=== PATIENT | female | born 1980 | race Caucasian/White ===

== ENCOUNTER 2017-04-24 23:11 | Emergency (ER) | payer OTHER ==
[2017-04-25] MEDS ORDERED: DIPHENHYDRAMINE HCL 50 MG/ML VIAL IM ONE (00:44)
[2017-04-25] MEDS ORDERED: KETOROLAC TROMETHAMINE 60 MG/2 ML SDV IM ONE (00:44)
[2017-04-25] MEDS ORDERED: PROMETHAZINE HCL INJ 50 MG/1 ML VIAL IM ONE (00:45)
--- NOTE | 2017-04-25 00:52 | ER Document Report ---
ED Headache - General Chief Complaint: Headache Stated Complaint: HEADACHE Time Seen by Provider: 04/25/17 00:35 Mode of Arrival: Ambulatory Information source: Patient Notes: 37-year-old female with a history of migraine headaches presents with complaint of headache. Patient states headache started 3 hours prior to arrival. It initially started on her left side but now has migrated to her right side. She describes the pain as constant, throbbing with associated photophobia nausea and vomiting. Patient did take her home migraine medication of Imitrex but immediately vomited. She denies any head injury, changes in vision, slurred speech, recent illnesses. Patient states this is typical of her usual migraine headache that she has 3-4 times a month. TRAVEL OUTSIDE OF THE [place] IN LAST 30 DAYS: No - HPI Patient complains to provider of: "Migraine" Patient reports: Frequent migraines, Hx chronic headaches Onset: This evening Onset was: Gradual. denies: Thunderclap Timing: Still present Quality of pain: Stabbing, Throbbing Severity: Moderate Pain Level: 2 Context: denies: CO exposure, Head injury, Meningitis exposure Preceding symptoms: denies: Visual disturbance Associated symptoms: Chills, Lightheaded, Nausea/vomiting, Photophobia. denies : Confusion, Dizzy, Fever, Neck pain, Speech problems, Stiff neck, Tingling/ numb sensation, Trouble walking Exacerbated by: Light, Noise, Movement Similar symptoms previously: Yes - Related Data Allergies/Adverse Reactions: No Known Allergies Allergy (Verified 11/09/15 16:41) Past Medical History - General Information source: Patient - Social History Smoking Status: Never Smoker Frequency of alcohol use: None Drug Abuse: None Lives with: Family, Spouse/Significant other Family History: Reviewed & Not Pertinent, Other - FATHER AND BROTHER WITH KIDNEY STONES Patient has suicidal ideation: No Patient has homicidal ideation: No Neurological Medical History: Reports: Hx Migraine Renal/ Medical History: Reports: Hx Kidney Stones GI Medical History: Reports: Hx Irritable Bowel Psychiatric Medical History: Reports: Hx Anxiety, Hx Bipolar Disorder - "mood swings", Hx Depression, Hx Post Traumatic Stress Disorder Past Surgical History: Reports: Hx Tonsillectomy - Immunizations Immunizations up to date: Yes Hx Diphtheria, Pertussis, Tetanus Vaccination: Yes Review of Systems - Review of Systems Constitutional: See HPI. denies: Fever, Weakness EENT: denies: Eye pain, Blurred vision, Double vision, Vertigo Cardiovascular: denies: Chest pain Respiratory: No symptoms reported Gastrointestinal: Nausea, Vomiting Musculoskeletal: No symptoms reported Physical Exam - Vital signs Vitals: Temp Pulse Resp BP Pulse Ox 97.9 F 74 18 135/90 H 99 04/24/17 23:41 04/24/17 23:41 04/24/17 23:41 04/24/17 23:41 04/24/17 23:41 Interpretation: Normal. No: Hypertensive, Febrile - General General appearance: Appears well, Alert In distress: None - HEENT Head: Normocephalic, Atraumatic Eyes: Normal. No: Pale conjunctiva, Periorbital edema Conjunctiva: Normal Cornea: Normal Extraocular movements intact: Yes Pupils: PERRL Fundascopic: Normal Mucous membranes: Normal - Neurological Neuro grossly intact: Yes Cognition: Normal Orientation: AAOx4 Dasia Coma Scale Eye Opening: Spontaneous Dasia Coma Scale Verbal: Oriented Dasia Coma Scale Motor: Obeys Commands Dasia Coma Scale Total: 15 Speech: Normal Cranial nerves: Normal. No: Facial palsy, Sensory deficit Cerebellar coordination: Normal Motor strength normal: LUE, RUE, LLE, RLE Sensory: Normal Course - Re-evaluation Re-evalutation: 04/25/17 00:51 There is 37-year-old female with a history of migraine headaches presents with complaint of headache. Patient states headache started 3 hours prior to arrival. She attempted to take her home medication of Imitrex but immediately vomited.Upon arrival vitals were reviewed and within normal limits. Patient does not appear toxic or dehydrated. She is in no acute distress. Patient has normal neurologic exam and funduscopic exam.Patient received Phenergan, Benadryl and Toradol during her ED course. 04/25/17 01:59 Patient reevaluated and reports improvement of pain but not resolution. I will try prednisone. - Vital Signs Vital signs: Temp Pulse Resp BP Pulse Ox 97.9 F 74 18 135/90 H 99 04/24/17 23:41 04/24/17 23:41 04/24/17 23:41 04/24/17 23:41 04/24/17 23:41 Discharge - Discharge Clinical Impression: Migraine Condition: Good Disposition: HOME, SELF-CARE Instructions: Migraine Headache ([facility]), Toradol Injection ([facility]), Headache ([facility]) , Use of Diphenhydramine, Antinausea Medication ([facility])
[2017-04-25] MEDS ORDERED: PROMETHAZINE HCL INJ 25 MG/1 ML VIAL ONE (00:54)
[2017-04-25] MEDS ORDERED: PREDNISONE 20 MG TABLET PO ONE (01:58)
[2017-04-25] MEDS ORDERED: LORAZEPAM 1 MG TABLET PO ONE (01:58)
[2017-04-25 02:22] VITALS: BP 117/75
== END 2017-04-25 02:22 | disposition home or self-care (01) ==
LOC: ER 23:11
DX: G43.909 Migraine, unspecified, not intractable, without status migrainosus (principal); R11.2 Nausea with vomiting, unspecified; H53.149 Visual discomfort, unspecified; R42 Dizziness and giddiness; R68.83 Chills (without fever)
CPT/HCPCS: 99283; 96372; J1200; J1885; J7512; J2550

== ENCOUNTER 2017-07-07 12:25 | Emergency (ER) | payer OTHER ==
[2017-07-07 12:30] VITALS: BP 120/72
--- NOTE | 2017-07-07 12:52 | ER Document Report ---
HPI - HPI Patient complains to provider of: left ear infection Onset: Yesterday Onset/Duration: Gradual Pain Level: 3 Context: 37 yo 8 week female took external aurical earring out because it became swollen and painful with some drainage. Associated Symptoms: None Exacerbated by: Movement Relieved by: Denies Similar symptoms previously: No Recently seen / treated by doctor: No - ROS ROS below otherwise negative: Yes Systems Reviewed and Negative: Yes All other systems reviewed and negative - CONSTITUTIONAL Constitutional: DENIES: Fever, Chills - EENT EENT: REPORTS: Ear Pain - left Past Medical History - General Information source: Patient - Social History Smoking Status: Current Every Day Smoker Chew tobacco use (# tins/day): No Frequency of alcohol use: None Drug Abuse: None Lives with: Spouse/Significant other Family History: Reviewed & Not Pertinent, Other - FATHER AND BROTHER WITH KIDNEY STONES Patient has suicidal ideation: No Patient has homicidal ideation: No Neurological Medical History: Reports: Hx Migraine Renal/ Medical History: Reports: Hx Kidney Stones. Denies: Hx Peritoneal Dialysis GI Medical History: Reports: Hx Irritable Bowel Psychiatric Medical History: Reports: Hx Anxiety, Hx Bipolar Disorder - "mood swings", Hx Depression, Hx Post Traumatic Stress Disorder Past Surgical History: Reports: Hx Orthopedic Surgery - ACL reconstruction and lumbar fusion, Hx Tonsillectomy - Immunizations Immunizations up to date: Yes Hx Diphtheria, Pertussis, Tetanus Vaccination: Yes Vertical Provider Document - CONSTITUTIONAL Agree With Documented VS: Yes Exam Limitations: No Limitations General Appearance: No Apparent Distress - INFECTION CONTROL TRAVEL OUTSIDE OF THE [place] IN LAST 30 DAYS: No - HEENT Notes: swelling and tender to left external ear, crusted hole where the earring was placed in helix crux.mastoid non tender. posterior auricular node. ear not jutted out, pinna non tender - NECK Neck: Supple. negative: Lymphadenopathy-Left, Lymphadenopathy-Right - NEURO Level of Consciousness: Awake Course - Re-evaluation Re-evalutation: 07/07/17 13:[address] Jones Aguero and since she is 8 weeks and 3 days for antibiotic choice. He recommends clindamycin. 07/07/17 13:11 - Vital Signs Vital signs: Temp Pulse Resp BP Pulse Ox 98.9 F 81 14 120/72 97 07/07/17 12:28 07/07/17 12:28 07/07/17 12:28 07/07/17 12:28 07/07/17 12:28 Discharge - Discharge Clinical Impression: External left ear infection Condition: Good Disposition: HOME, SELF-CARE Instructions: Acetaminophen, Clindamycin ([facility]), Otitis Externa ([facility]) Additional Instructions: Warm compress Recheck external left ear in 24 hours Return to the emergency room if worsening of the symptoms Prescriptions: Clindamycin HCl [Cleocin 150 mg Capsule] 300 mg PO TID #42 capsule
== END 2017-07-07 13:19 | disposition home or self-care (01) ==
LOC: ER 12:25
DX: O26.891 Other specified pregnancy related conditions, first trimester (principal); L08.9 Local infection of the skin and subcutaneous tissue, unspecified; Z3A.08 8 weeks gestation of pregnancy; F17.200 Nicotine dependence, unspecified, uncomplicated
CPT/HCPCS: 99282

== ENCOUNTER 2017-12-07 21:05 | Emergency (ER) | payer OTHER ==
[2017-12-07 21:19] VITALS: BP 133/71
[2017-12-07] MEDS ORDERED: ACETAMINOPHEN 325 MG TABLET PO ONE (21:47)
--- NOTE | 2017-12-07 22:03 | ER Document Report ---
HPI - HPI Pain Level: 3 Context: Patient is a 37-year-old female who presents to the emergency department after stubbing her toe on her ottoman around 1930 this evening. Describes the pain as a sore pain. Walking on the her left foot makes the pain worse. He has not taken any medications to help the pain. - REPRODUCTIVE Reproductive: DENIES: : Past Medical History - General Information source: Patient - Social History Smoking Status: Unknown if Ever Smoked Family History: Reviewed & Not Pertinent, Other - FATHER AND BROTHER WITH KIDNEY STONES Neurological Medical History: Reports: Hx Migraine Renal/ Medical History: Reports: Hx Kidney Stones. Denies: Hx Peritoneal Dialysis GI Medical History: Reports: Hx Irritable Bowel Psychiatric Medical History: Reports: Hx Anxiety, Hx Bipolar Disorder - "mood swings", Hx Depression, Hx Post Traumatic Stress Disorder Past Surgical History: Reports: Hx Orthopedic Surgery - ACL reconstruction and lumbar fusion, Hx Tonsillectomy - Immunizations Immunizations up to date: Yes Hx Diphtheria, Pertussis, Tetanus Vaccination: Yes Vertical Provider Document - INFECTION CONTROL TRAVEL OUTSIDE OF THE [place] IN LAST 30 DAYS: No - HEENT HEENT: Atraumatic - NECK Neck: Normal Inspection - CARDIOVASCULAR Cardiovascular: Regular Rate Pulses: Normal: Dorsalis pedis - NEURO Level of Consciousness: Awake, Alert, Appropriate - DERM Integumentary: Warm, Dry Course - Re-evaluation Re-evalutation: 12/07/17 23:02 X-rays have been reviewed and patient does not have an acute fracture at this time. She will be provided crutches, postop shoe, and nnamdi taping for her toe injury. Patient is stable for discharge. - Vital Signs Vital signs: Temp Pulse Resp BP Pulse Ox 98.7 F 95 20 133/71 H 96 12/07/17 21:18 12/07/17 21:18 12/07/17 21:18 12/07/17 21:18 12/07/17 21:18 Discharge - Discharge Clinical Impression: Toe injury Condition: Stable Disposition: HOME, SELF-CARE Additional Instructions: You have been seen in the emergency department for an injury to your left pinky toe. Your x-rays look normal. You do not have a fracture. You have been provided crutches, a post op shoe, and nnamdi taping. Rest her foot for the next 2-3 days. You may apply ice 20 minutes on, 20 minutes off the area. For pain control, you can take 1000 mg of Tylenol and 600 mg of Motrin every 6 hours as needed for the pain. If you feel your toe is getting worse, or have any concerns that are worrisome to you, please return to the emergency department.
--- NOTE | 2017-12-07 22:53 | RADIOLOGY REPORT (SQ) ---
Left toes two view on 12/07/2017 at 9:38 PM CLINICAL INDICATION: Stubbed fifth toe, pain and swelling COMPARISON: None FINDINGS: There is no radiopaque foreign body. There are no fractures. Visualized joints are well aligned. No bony abnormality is noted. IMPRESSION: No acute abnormality.
== END 2017-12-07 23:23 | disposition home or self-care (01) ==
LOC: ER 21:05
DX: S99.929A Unspecified injury of unspecified foot, initial encounter (principal); W22.03XA Walked into furniture, initial encounter
CPT/HCPCS: 99283

== ENCOUNTER 2018-01-06 10:45 | Inpatient (IN) | payer OTHER ==
[2018-02-12 22:00] LABS: APPEARANCE,URINE CLOUDY; BILIRUBIN,URINE NEGATIVE (NEGATIVE); COLOR,URINE YELLOW; GLUCOSE, URINE NEGATIVE (NEGATIVE); KETONES,URINE NEGATIVE (NEGATIVE); LEUKOCYTE ESTERASE,URINE SMALL (NEGATIVE); NITRITE,URINE NEGATIVE (NEGATIVE); PROTEIN,URINE NEGATIVE (NEGATIVE); URINE SPECIFIC GRAVITY 1.012; UROBILINOGEN,URINE NEGATIVE mg/dL (<2.0)
[2018-02-12 22:03] LABS: ABSOLUTE BASOPHILS # (AUTO) 0.1 10^3/uL (0.0-0.2); ABSOLUTE EOSINOPHILS # (AUTO) 0.3 10^3/uL (0.0-0.6); ABSOLUTE LYMPHOCYTES (AUTO) 2.2 10^3/uL (0.5-4.7); ABSOLUTE NEUT (AUTO) 9.3 10^3/uL (1.7-8.2); BASOPHILS % (AUTO) 0.4 % (0-2); EOSINOPHILS % (AUTO) 2.5 % (0-6); HEMATOCRIT 30.8 % (36.0-47.0); MEAN CORPUSCULAR HEMOGLOBIN 32.4 pg (27.0-33.4); MEAN CORPUSCULAR HGB CONC 35.8 g/dL (32.0-36.0); MEAN CORPUSCULAR VOLUME 91 fl (80-97); MONOCYTES % (AUTO) 7.6 % (3-13); PLATELET COUNT 355 10^3/uL (150-450); RED CELL DISTRIBUTION WIDTH 13.4 % (11.5-14.0); SEGMENTED NEUTROPHILS % (AUTO) 72.5 % (42-78); TOTAL CELLS COUNTED % (AUTO) 100 %; WHITE BLOOD COUNT 12.8 10^3/uL (4.0-10.5)
[2018-02-12] MEDS ORDERED: DINOPROSTONE 10 MG VAGINAL INSERT.SR ONE (22:10)
[2018-02-12 22:23] LABS: URINE AMPHETAMINES SCREEN NEGATIVE; URINE BARBITURATES SCREEN NEGATIVE; URINE BENZODIAZEPINES SCREEN NEGATIVE; URINE COCAINE SCREEN NEGATIVE; URINE MARIJUANA (THC) SCREEN NEGATIVE; URINE METHADONE SCREEN NEGATIVE; URINE PHENCYCLIDINE SCREEN NEGATIVE
[2018-02-12] MEDS ORDERED: DINOPROSTONE 10 MG VAGINAL INSERT.SR PV ONE (23:00)
[2018-02-12] MEDS ORDERED: RINGERS SOLUTION,LACTATED 1,000 ML IV PRN (23:01)
[2018-02-12] MEDS ORDERED: ZOLPIDEM TARTRATE 5 MG TABLET ONE (23:03)
[2018-02-12] MEDS ORDERED: ZOLPIDEM TARTRATE 5 MG TABLET PO ONE (23:30)
--- NOTE | 2018-02-13 01:54 | Admission Physical ---
Datetime Report Generated by CPN: 02/13/2018 01:53 CURRENT ADMISSION Chief Complaint: Scheduled Induction of Labor Indication for Induction: Polyhydramnios Admit Impression : Term, Intrauterine ; No Active Labor; Intact Membranes; Induction of Labor Admit Plan: Admit to Unit; Initiate Labor Induction Protocol ALLERGIES Medication Allergies: No Medication Allergies: No Known Allergies (02/12/2018) Latex: No Latex Allergies OBSTETRICAL HISTORY EDC: 02/17/2018 00:00 : 2 Para: 1 Term: 1 : 0 SAB: 0 IAB: 0 Ectopic: 0 Livin Cesareans: 0 VBACs: 0 Multiple Births: 0 Gestational Diabetes: No Rh Sensitization: No Incompetent Cervix: No JAMEEL: No Infertility: No ART Treatment: No Uterine Anomaly: No IUGR: No Hx Previous C/S: No Macrosomia: No Hx Loss/Stillborn: No PIH: No Hx : No Placenta Previa/Abruption: No Depression/PP Depression: Yes PTL/PROM: No Post Hemorrhage: No Obstetrical History Comments: G1 2009 9lbs 1 oz, chorio, baby born with meningitis, jaundice G2-current, AMA, polyhydramnios SEE RECORDS Alcohol: No Marijuana : No Cocaine: No Other Illicit Drugs: No Cigarettes: Current Everyday Smoker. [id number] Cigarette Frequency: 5 - 10 per day Advised to Stop: Yes MEDICAL HISTORY Diabetes: No Blood Transfusion: No Pulmonary Disease (Asthma, TB): No Breast Disease: No Hypertension: No [place] Surgery: No Heart Disease: No Hosp/Surgery: Yes Autoimmune Disorder: No Anesthetic Complications: No Kidney Disease: No Abnormal Pap Smear: No Neuro/Epilepsy: No Psychiatric Disorders: Yes Other Medical Diseases: No Hepatitis/Liver Disease: No Significant Family History: No Varicosities/Phlebitis: No Trauma/Violence : No Thyroid Dysfunction: No Medical History Comments: obesity, PTSD, depression, anxiety spine L5 fusion and right knee surgery hx of chorio baby with meningitis INFECTIOUS HISTORY Gonorrhea: No Genital Herpes: No Chlamydia: Yes Tuberculosis: No Syphilis: No Hepatitis: No HIV/AIDS Exposure: No Rash or Viral Illness: No HPV: No Infectious History Comments: chlamydia 2008 PHYSICAL EXAM General: Normal HEENT: Normal Neurologic: Normal Thyroid: Deferred Heart: Normal Lungs: Normal Breast: Deferred Back: Normal Abdomen: Normal Genitourinary Exam: Normal Extremities: Normal DTRs: Normal Pelvic Type: Adequate Vital Signs: Reviewed VAGINAL EXAM Dilatation: 1 Effacement: 50 Station: -2 Contraction Comments: none MEMBRANES Membranes: Intact FETUS A EGA: 39.3 Monitoring: External US FHR- Baseline: 130 Variability: Moderate 6-25bpm Accelerations: 15X15 Decelerations: None FHR Category: Category I Presentation: Breech Admit Comment: 37yo at 39+3ega with polyhydramnios presents for IOL. Cvx /3 - cervidil placed on admission. c/b obesity, h/o macrosomia, tobacco abuse, PTSD. REportedly she had chorio with her last and baby was born with meningitis. Admit to Labor and delivery. Cervidil placed. Anticipate . GBS negative PLANS FOR LABOR AND DELIVERY Labor and Delivery: Plan Pain Management: Epidural Feeding Preference: Breast Benefit of Breast Feed Discussed: Yes Circumcision: Yes INFORMED CONSENT Informed Consent Obtained: Vaginal Delivery; Induction of Labor; Risks, Benefits and Alternatives Discussed Signature: with User ID: [email or web address]
--- NOTE | 2018-02-13 08:49 | L&D Progress Notes ---
PROGRESS NOTES Datetime Report Generated by CPN: 02/13/2018 08:49 PROGRESS NOTE Informed Consent Obtained: Vaginal Delivery; Induction of Labor; Risks, Benefits and Alternatives Discussed Comment: Cat 1 strip, vs stable VAGINAL EXAM Dilatation: 1 Effacement: 50 Station: -2 Contractions: none LAST VAGINAL EXAM-NURSING Dilitation: 1.0 Effacement: 50 Station: -2 Contractions: no ctx Contractions: no ctx MEMBRANES Membranes: Intact FETUS A Presentation: Breech SIGNATURE SIGNATURE: [id number];[id number];[id number] SIGNATURE: [id number];14,[id number] SIGNATURE: [id number] Assignment: Denae Tay MD Signature: with User ID: [email or web address] : with User ID: [email or web address]
--- NOTE | 2018-02-13 10:34 | L&D Progress Notes ---
PROGRESS NOTES Datetime Report Generated by CPN: 02/13/2018 10:34 PROGRESS NOTE Comment: VE = 1+, cervidil not in place, will start Pitocin, irreg uc's VAGINAL EXAM Dilitation: 1.5 Effacement: 60 Station: -2 FETUS C SIGNATURE: [id number];14,[id number];10,[id number] Assignment: Denae Tay MD Signature: with User ID: [email or web address] : with User ID: [email or web address]
[2018-02-13] MEDS ORDERED: OXYTOCIN/NORMAL SALINE 20 UNIT/1,000 ML RTUINJ ONE (10:36)
[2018-02-13] MEDS ORDERED: MISOPROSTOL 0.2 MG TABLET ONE (13:01)
[2018-02-13] MEDS ORDERED: LIDOCAINE 1% INJ-PF (10 MG/ML) 30 ML SDV ONE (13:01)
--- NOTE | 2018-02-13 14:53 | L&D Progress Notes ---
PROGRESS NOTES Datetime Report Generated by CPN: 02/13/2018 14:53 PROGRESS NOTE Impression: Reassuring Heart Rate Procedures: Artificial ROM Plan: Continue Present Management; Induction; Anticipate Vaginal Delivery Vital Signs : Reviewed; Within Normal Limits Comment: VE 2/vtx/-1, AROM, clear fluid, POC discused, wants epidural, large amount of clear fluid, Cat 1 strip, irreg uc's VAGINAL EXAM Contractions: contractions palpate firm. resting tone soft. FETUS C SIGNATURE: [id number];14,[id number];13,[id number] Assignment: Denae Tay MD Signature: with User ID: [email or web address] : with User ID: [email or web address]
[2018-02-13] MEDS ORDERED: FENTANYL CITRATE INJ/PF 100 MCG/2 ML AMPUL ONE (16:08)
[2018-02-13] MEDS ORDERED: PHENYLEPHRINE HCL INJ/PF 10 MG/1 ML SDV ONE (16:08)
[2018-02-13] MEDS ORDERED: EPHEDRINE SULFATE INJ 50 MG/1 ML AMPULE ONE (16:08)
[2018-02-13] MEDS ORDERED: BUPIVACAINE HCL 0.25 % INJ/PF (2.5 MG/1 ML) 30 ML VIAL ONE (16:09)
[2018-02-13] MEDS ORDERED: FENTANYL/BUPIVACAINE/NS/PF 300 MCG/150 ML RTUINJ EPI ONE (16:10)
[2018-02-13] MEDS ORDERED: ONDANSETRON HCL INJ/PF 4 MG/2 ML SDV ONE (16:27)
[2018-02-13] MEDS ORDERED: LIDOCAINE 1.5%/EPINEPHRINE INJ-PF 30 ML SDV ONE (16:43)
--- NOTE | 2018-02-13 16:53 | L&D Progress Notes ---
PROGRESS NOTES Datetime Report Generated by CPN: 02/13/2018 16:52 PROGRESS NOTE Comment: Dr. [place]head here for epidural, pain with increase pain and cx change, cat 1 strip VAGINAL EXAM Dilitation: 3.0 Effacement: 80 Station: -1 FETUS C SIGNATURE: [id number];14,[id number];10,[id number] Assignment: Denae Tay MD Signature: with User ID: [email or web address] : with User ID: [email or web address]
[2018-02-13] MEDS ORDERED: PROMETHAZINE HCL 25 MG SUPP.RECT PR PRN (19:12)
[2018-02-13] MEDS ORDERED: DIBUCAINE 1% OINTMENT 28 GM TP PRN (19:12)
[2018-02-13] MEDS ORDERED: OXYTOCIN/NORMAL SALINE 20 UNIT/1,000 ML RTUINJ IV PRN (19:12)
[2018-02-13] MEDS ORDERED: ZOLPIDEM TARTRATE 5 MG TABLET PO PRN (19:12)
[2018-02-13] MEDS ORDERED: DIPH/PERTUSS(ACELL)/TETANUS VAC/PF 0.5 ML SYR (>=10YO) IM PRN (19:12)
[2018-02-13] MEDS ORDERED: MAGNESIUM HYDROXIDE SUSP 30 ML UDCUP PO PRN (19:12)
[2018-02-13] MEDS ORDERED: PSEUDOEPHEDRINE HCL 30 MG TABLET PO PRN (19:12)
[2018-02-13] MEDS ORDERED: PROMETHAZINE HCL INJ 25 MG/1 ML VIAL IV PRN (19:12)
[2018-02-13] MEDS ORDERED: DIPHENHYDRAMINE HCL 25 MG CAPSULE PO PRN (19:12)
[2018-02-13] MEDS ORDERED: GLYCERIN/WITCH HAZEL LEAF 1 EACH MED..PAD TP PRN (19:12)
[2018-02-13] MEDS ORDERED: MEASLES,MUMPS&RUBELLA VACC/PF 0.5 ML VIAL SUBCUT PRN (19:12)
[2018-02-13] MEDS ORDERED: NA PHOS,M-B/NA PHOS,DI-BA (ADULT) 133 ML ENEMA PR PRN (19:12)
[2018-02-13] MEDS ORDERED: ACETAMINOPHEN 650 MG SUPP.RECT PR PRN (19:12)
[2018-02-13] MEDS ORDERED: PROMETHAZINE HCL 25 MG TABLET PO PRN (19:12)
[2018-02-13] MEDS ORDERED: ACETAMINOPHEN WITH CODEINE #3 TABLET PO PRN ×2 (19:12)
[2018-02-13] MEDS ORDERED: BENZOCAINE/MENTHOL AEROSOL SPRAY 56 ML TOP PRN (19:12)
[2018-02-14] MEDS: IBUPROFEN 800 MG TABLET PO SCH ×3 (06:02→21:37)
[2018-02-14 06:25] LABS: HEMATOCRIT 24.8 % (36.0-47.0); MEAN CORPUSCULAR HEMOGLOBIN 32.8 pg (27.0-33.4); MEAN CORPUSCULAR VOLUME 91 fl (80-97); PLATELET COUNT 274 10^3/uL (150-450); RED BLOOD COUNT 2.72 10^6/uL (3.72-5.28); RED CELL DISTRIBUTION WIDTH 13.1 % (11.5-14.0); WHITE BLOOD COUNT 14.3 10^3/uL (4.0-10.5)
[2018-02-14 06:55] LABS: HEMOGLOBIN 8.9 g/dL (12.0-15.5)
--- NOTE | 2018-02-14 10:09 | PDOC PROGRESS REPORT ---
Subjective-OB Progress Note for:: 02/14/18 Subjective: Doing well, no c/o, Physical Exam (OB) Vital Signs: Temp Pulse Resp BP Pulse Ox 98.2 F 70 18 109/69 98 02/14/18 07:56 02/14/18 07:56 02/14/18 07:56 02/14/18 07:56 02/14/18 07:56 Intake & Output 02/13/18 02/14/18 02/15/18 06:59 06:59 06:59 Weight 108.5 kg - PIH/Pre-Eclampsia DTR's: 2 + Clonus: Negative Headache: Absent Epigastric Pain: No Visual Changes: No - Lochia Lochia Amount: Scant < 10 ml Lochia Color: Rubra/Red - Abdomen Description: Tender, Soft Hernia Present: No Fundal Description: Firm, Midline Fundal Height: u/u - u/2 Objective-Diagnostic Laboratory: 02/14/18 05:53 02/14/18 05:53 WBC 14.3 H RBC 2.72 L Hgb 8.9 L D Hct 24.8 L MCV 91 MCH 32.8 MCHC 36.0 RDW 13.1 Plt Count 274 Assessment and Plan(PN) - Assessment and Plan (1) Delivery normal Is this a current diagnosis for this admission?: Yes (2) Polyhydramnios affecting in third trimester Is this a current diagnosis for this admission?: Yes (3) AMA (advanced maternal age) primigravida 35+ Qualifiers: Trimester: first trimester Qualified Code(s): O09.511 - Supervision of elderly primigravida, first trimester Is this a current diagnosis for this admission?: Yes - Time Spent with Patient Time with patient: Less than 15 minutes Medications reviewed and adjusted accordingly: Yes - Disposition Anticipated Discharge: Home Within: within 24 hours
[2018-02-14] MEDS: FAMOTIDINE 20 MG TABLET PO SCH ×2 (10:38→21:37)
[2018-02-14] MEDS: PRENATAL VITAMIN W DHA CAPSULE PO SCH (10:38)
[2018-02-14] MEDS: SENNOSIDES/DOCUSATE 8.6-50 MG 1 EACH TABLET PO SCH (10:38)
[2018-02-14] MEDS: FERROUS SULFATE 325 MG TABLET PO SCH ×2 (10:38→17:40)
[2018-02-14] MEDS: DOCUSATE SODIUM 100 MG CAPSULE PO SCH ×2 (10:39→17:40)
[2018-02-15] MEDS: IBUPROFEN 800 MG TABLET PO SCH ×2 (05:28→07:42)
[2018-02-15] MEDS: FAMOTIDINE 20 MG TABLET PO SCH ×2 (07:42→10:07)
[2018-02-15 08:06] VITALS: BP 114/67
[2018-02-15] MEDS: SENNOSIDES/DOCUSATE 8.6-50 MG 1 EACH TABLET PO SCH (10:07)
[2018-02-15] MEDS: DOCUSATE SODIUM 100 MG CAPSULE PO SCH (10:07)
[2018-02-15] MEDS: FERROUS SULFATE 325 MG TABLET PO SCH (10:07)
[2018-02-15] MEDS: PRENATAL VITAMIN W DHA CAPSULE PO SCH (10:07)
--- NOTE | 2018-02-15 10:28 | PDOC PROGRESS REPORT ---
Subjective-OB Progress Note for:: 02/15/18 Subjective: Doing well, ready to go home, family in room Physical Exam (OB) Vital Signs: Temp Pulse Resp BP Pulse Ox 97.7 F 65 18 114/67 98 02/15/18 07:16 02/15/18 07:16 02/15/18 07:16 02/15/18 07:16 02/15/18 07:16 Intake & Output 02/14/18 02/15/18 02/16/18 06:59 06:59 06:59 Intake Total 850 Balance 850 - PIH/Pre-Eclampsia DTR's: 2 + Clonus: Negative Headache: Absent Epigastric Pain: No Visual Changes: No - Lochia Lochia Amount: Scant < 10 ml Lochia Color: Rubra/Red - Abdomen Description: Soft Hernia Present: No Fundal Description: Firm, Midline Fundal Height: u/u - u/2 Objective-Diagnostic Laboratory: 02/14/18 05:53 Assessment and Plan(PN) - Assessment and Plan (1) Delivery normal Is this a current diagnosis for this admission?: Yes (2) Polyhydramnios affecting in third trimester Is this a current diagnosis for this admission?: Yes (3) AMA (advanced maternal age) primigravida 35+ Qualifiers: Trimester: first trimester Qualified Code(s): O09.511 - Supervision of elderly primigravida, first trimester Is this a current diagnosis for this admission?: Yes - Time Spent with Patient Time with patient: Less than 15 minutes Medications reviewed and adjusted accordingly: Yes - Disposition Anticipated Discharge: Home Within: within 24 hours
--- NOTE | 2018-02-15 10:32 | PDOC DISCHARGE SUMMARY ---
Final Diagnosis Discharge Date: 02/15/18 - Final Diagnosis (1) Delivery normal Is this a current diagnosis for this admission?: Yes (2) Polyhydramnios affecting in third trimester Is this a current diagnosis for this admission?: Yes (3) AMA (advanced maternal age) primigravida 35+ Is this a current diagnosis for this admission?: Yes Discharge Data - Discharge Medication Home Medications: Iron 18 mg PO DAILY 01/06/18 Vit,Calc76/Iron/Folic [Prenatabs Rx Tablet] 1 tab PO DAILY 01/06/18 Gestational Age: 39.3 Reason(s) for Admission: Induction of Labor Procedures: NST, Ultrasound, Management of Obstetric Complications Procedure(s) Note: polyhydramnios Intrapartum Procedure(s): Spontaneous Vaginal Delivery Complication(s): Laceration-Vaginal, Laceration-Labial Laceration-Degree: 1st - Diagnosis Test Laboratory: Temp Pulse Resp BP Pulse Ox 97.7 F 65 18 114/67 98 02/15/18 07:16 02/15/18 07:16 02/15/18 07:16 02/15/18 07:16 02/15/18 07:16 02/12/18 02/12/18 02/14/18 21:20 21:41 05:53 RBC 3.40 L 2.72 L Hgb 11.0 L 8.9 L D Hct 30.8 L 24.8 L Urine Opiates Screen NEGATIVE - Discharge information/Instructions Discharge Activity: Activity As Tolerated, No Lifting Over 10 Pounds, No Lifting/Push/Pulling, Pelvic Rest Discharge Diet: As Tolerated, Regular Disposition: HOME, SELF-CARE Follow up with: [facility] in: 4, Weeks
--- NOTE | 2018-02-24 16:54 | Delivery Summary ---
Del Sum A-C Datetime Report Generated by CPN: 02/24/2018 16:53 DELIVERY PERSONNEL DELIVERY PERSONNEL: [id number] Delivery Doctor:: Denae Tay MD Labor and Delivery Nurse:: Janet Romano RNjunior business analyst Nurse:: CORINA Stovall Desk Director/IMAGE ARCHIVIST: Gloria Betts, REINFORCING STEEL PLACER MATERNAL INFORMATION Delivery Anesthesia: Local; Epidural Medications After Delivery: Pitocin Bolus-Please Comment Meds After Delivery Comment: Pitocin 20 units in 1000 ml NSS open for bolus Estimated Blood Loss (ml): 250 Maternal Complications: None; Other Complication Details: AMA, Polyhydramnious LABOR SUMMARY EDC: 02/17/2018 00:00 No. Babies in Womb: 1 Attempted: No LABOR INFORMATION Reason for Induction: Polyhydramnios Reason for Induction- Other: advanced maternal age Onset of Labor: 02/13/2018 17:11 Complete Dilatation: 02/13/2018 18:38 Cervical Ripening Agents: Cervidil Group B Beta Strep: negative Antibiotics # of Doses: 0 Steroids Given: None Reason Steroids Not Administered: Not Applicable MEMBRANES Membranes Rupture Method: Artificial Rupture of Membranes: 02/13/2018 14:45 Length of Rupture (hr): 4.10 Amniotic Fluid Color: Clear Amniotic Fluid Amount: Copious Amniotic Fluid Odor: Normal STAGES OF LABOR Stage 1 hr: 1 Stage 1 min: 27 Stage 2 hr: 0 Stage 2 min: 13 Stage 3 hr: 0 Stage 3 min: 7 Total Time in Labor hr: 1 Total Time in Labor min: 47 VAGINAL DELIVERY Episiotomy: None Laceration #1: Vaginal Laceration Extension #1: N/A Laceration #2: None Laceration #3: None Laceration Repair: Yes Laceration Repair Note: small right labial tear repaired with 3-0 chromic suture. 2 stitches. Sponge Count Correct: N/A; Vaginal Sweep Performed Sharps Count Correct: Yes CSECTION DELIVERY Primary Indication: N/A Secondary Indication: N/A CSection Incidence: N/A Labor: N/A Elective: N/A CSection Incision: N/A BABY A INFORMATION Infant Delivery Date/Time: 02/13/2018 18:51 Method of Delivery: Vaginal Born in Route : No : N/A Forceps: N/A Vacuum Extraction: N/A Shoulder Dystocia : Yes SHOULDER DYSTOCIA BABY A 1st Intervention to Resolve: McRobert's Maneuver 2nd Intervention to Resolve: Garcia Maneuver 3rd Intervention to Resolve: Suprapubic Pressure Verify NO Fundal Pressure: No Fundal Pressure Applied Arm Under Symphisis at Del: Right Shoulder Dystocia Comments: resolved with suprapubic pressure and Garcia Screw PRESENTATION/POSITION BABY A Presentation: Cephalic Cephalic Presentation: Vertex Vertex Position: Right Occipital Anterior Breech Presentation: N/A PLACENTA INFORMATION BABY A Placenta Delivery Time : 02/13/2018 18:58 Placenta Method of Delivery: Spontaneous Placenta Status: Delivered SCORES BABY A Heart Rate 1 min: >100 bpm Resp Effort 1 min: Good Cry Reflex Irritability 1 min: Cough or Sneeze or Pulls Away Muscle Tone 1 min: Active Motion Color 1 min: Blue/Pale Resuscitation Effort 1 min: Tactile Stimulation SCORE 1 MIN: 8 Heart Rate 5 min: >100 bpm Resp Effort 5 min: Good Cry Reflex Irritability 5 min: Cough or Sneeze or Pulls Away Muscle Tone 5 min: Active Motion Color 5 min: Body [place], Extremities Blue Resuscitation Effort 5 min: N/A SCORE 5 MIN: 9 Resuscitation Effort 10 min: N/A INFORMATION BABY A Gestational Age at Delivery: 39.3 Gestational Status: Full Term- 39- 40.6 Weeks Infant Outcome : Liveborn Condition : Stable Sex: Male IDENTIFICATION BABY A Verification Date/Time: 02/13/2018 19:34 ID Band Number: [id number] Mother's Name Verified: Yes Infant RN Verifying Infant: Laverne Harmon RN Additional Verifying Personnel: Parrish Taylor RN WEIGHT/LENGTH BABY A Birthweight (gm): 4225 Weight (lb): 9 Weight (oz): 5 Infant Length (in): 21.00 Infant Length (cm): 53.34 CORD INFORMATION BABY A No. Cord Vessels: 3 Nuchal Cord : N/A Cord Blood Taken: Yes-For Eval (Mom's Blood Type - or O+) Suction: None ASSESSMENT BABY A Complications: Shoulder Dystocia Physical Findings at Delivery: Caput Succedaneum; Molding of the Head; Bruising Infant Respirations: Appears Normal Skin to Skin: Yes Talent Acquisition Consultant/ALS Called : No Infant Care By: Samuel Ponce Rn Transferred To: Remains with Mother BABY B INFORMATION : N/A SIGNATURES Signature: with User ID: [email or web address]
== END 2018-02-15 15:10 | disposition home or self-care (01) | DRG 807 ==
LOC: LR 02-12 21:11 → 2S 02-13 22:25
PROVIDERS: ADMIT Obstetrics & Gynecology; ATTEND Obstetrics & Gynecology
PROC: 10E0XZZ Delivery of Products of Conception, External Approach (ICD-10-PCS; principal; 2018-02-13)
PROC: 0HQ9XZZ Repair Perineum Skin, External Approach (ICD-10-PCS; 2018-02-13)
DX: O40.3XX0 Polyhydramnios, third trimester, not applicable or unspecified (principal); Z37.0 Single live birth; O32.1XX0 Maternal care for breech presentation, not applicable or unspecified; O36.63X0 Maternal care for excessive fetal growth, third trimester, not applicable or unspecified; O66.0 Obstructed labor due to shoulder dystocia; O75.89 Other specified complications of labor and delivery; O99.214 Obesity complicating childbirth; O70.0 First degree perineal laceration during delivery; O99.344 Other mental disorders complicating childbirth; F41.8 Other specified anxiety disorders; O99.334 Smoking (tobacco) complicating childbirth; F17.210 Nicotine dependence, cigarettes, uncomplicated; Z3A.39 39 weeks gestation of pregnancy
CPT/HCPCS: 36415; 80307; 81005; 85025; 85027; 86592; 86850; 86900; 86901; J2370; J2405; J2590; J3010; J3490

== ENCOUNTER 2018-01-06 10:49 | Outpatient (CLI) | payer OTHER | END 2018-01-06 11:24 | disposition home or self-care (01) | LOC: LC 10:49 | PROVIDERS: ATTEND Student in an Organized Health Care Education/Training Program | PROC: 4A1HXCZ Monitoring of Products of Conception, Cardiac Rate, External Approach (ICD-10-PCS; principal; 2018-01-06) | DX: Z34.93 Encounter for supervision of normal pregnancy, unspecified, third trimester (principal) | CPT/HCPCS: 59025 ==

== ENCOUNTER 2018-01-13 10:08 | Outpatient (CLI) | payer OTHER ==
--- NOTE | 2018-01-13 12:00 | Non Stress Test Report ---
Non Stress Test Datetime Report Generated by CPN: 01/13/2018 12:00 DEMOGRAPHIC EGA NST: 35.0 INDICATION Indication for Study: Ordered by Provider; Other Indication for Study (NST) Other: AMA VITAL SIGNS Temperature - NST: 98.0 Pulse - NST: 87 RESP - NST: 16 NBPSYS NST: 101 NBPDIA NST: 57 MONITORING Monitor Explained: Monitor Explained; Test Explained; Patient Verbalized Understanding Time on Monitor: 01/13/2018 10:15 Time off Monitor: 01/13/2018 10:49 NST Duration: 34 NST INTERVENTIONS NST Interventions: PO Hydration; Reposition Patient Physician Notified NST: DR YOUNGER BABY A: [id number] BABY A Movement : Present Contraction Frequency : NONE FHR Baseline : 135 Accelerations : 15X15 Decelerations : None Variability : Moderate 6-25bpm NST Review: Meets Criteria for Reactive NST NST Review and Verified By : Ana Camp RNC NST REPORT Report Trigger: Send Report
== END 2018-01-13 11:02 | disposition home or self-care (01) ==
LOC: LC 10:08
PROVIDERS: ATTEND Obstetrics & Gynecology
PROC: 4A1HXCZ Monitoring of Products of Conception, Cardiac Rate, External Approach (ICD-10-PCS; principal; 2018-01-13)
DX: O09.523 Supervision of elderly multigravida, third trimester (principal); Z3A.35 35 weeks gestation of pregnancy
CPT/HCPCS: 59025

== ENCOUNTER 2018-02-20 10:04 | Emergency (ER) | payer OTHER ==
[2018-02-20 10:10] VITALS: BP 131/84
--- NOTE | 2018-02-20 11:03 | ER Document Report ---
ED Medical Screen (RME) - General Chief Complaint: Vaginal Pain Stated Complaint: VAGINAL ISSUE Time Seen by Provider: 02/20/18 10:56 TRAVEL OUTSIDE OF THE [place] IN LAST 30 DAYS: No - HPI Notes: 02/20/18 11:01 Patient is a 37-year-old female that presents to the emergency department for chief complaint of vaginal stitches issue. Patient vaginally delivered a child on 02/13/18. She had 2 stitches placed in the upper aspect of her labia. She states they were dissolvable. She currently does not see the stitches and reports the wound has into 2 flaps. She reports increased pain. She also states she has been having a few seconds of substernal chest pain for the last few days. She states it lasts for 5-10 seconds and then completely resolved. She is not having that pain currently. She has never had that pain before. She has not taken any [id number] medications for pain. ROS: GENERAL: Denies fever of chills CV: chest pain PHYSICAL EXAMINATION: GENERAL: Well-appearing, well-nourished and in no acute distress. HEAD: Atraumatic, normocephalic. EYES: Pupils equal round extraocular movements intact, conjunctiva are normal. ENT: Nares patent NECK: Normal range of motion LUNGS: No respiratory distress Musculoskeletal: Normal range of motion NEUROLOGICAL: Normal speech, normal gait. PSYCH: Normal mood, normal affect. MDM: Patient seen and examined for rapid initial assessment. Vital signs reviewed. A comprehensive ED assessment and evaluation of the patient, analysis of test results and completion of the medical decision making process will be conducted by additional ED providers. - Related Data Allergies/Adverse Reactions: No Known Allergies Allergy (Verified 02/12/18 21:23) Past Medical History - Social History Chew tobacco use (# tins/day): No Frequency of alcohol use: None Drug Abuse: None Neurological Medical History: Reports: Hx Migraine Renal/ Medical History: Reports: Hx Kidney Stones. Denies: Hx Peritoneal Dialysis GI Medical History: Reports: Hx Irritable Bowel Psychiatric Medical History: Reports: Hx Anxiety, Hx Bipolar Disorder - "mood swings", Hx Depression, Hx Post Traumatic Stress Disorder Past Surgical History: Reports: Hx Orthopedic Surgery - ACL reconstruction and lumbar fusion, Hx Tonsillectomy - Immunizations Immunizations up to date: Yes Hx Diphtheria, Pertussis, Tetanus Vaccination: Yes Physical Exam - Vital signs Vitals: Temp Pulse Resp BP Pulse Ox 98.7 F 86 18 131/84 H 98 02/20/18 10:09 02/20/18 10:09 02/20/18 10:09 02/20/18 10:02/20/18 10:09 Course - Vital Signs Vital signs: Temp Pulse Resp BP Pulse Ox 98.7 F 86 18 131/84 H 98 02/20/18 10:09 02/20/18 10:09 02/20/18 10:56 02/20/18 10:02/20/18 10:09 Doctor's Discharge - Discharge Referrals: HARSHIL YO MD [Primary Care Provider] - Follow up as needed
--- NOTE | 2018-02-20 11:32 | ER Document Report ---
ED General - General Chief Complaint: Vaginal Pain Stated Complaint: VAGINAL ISSUE Time Seen by Provider: 02/20/18 10:56 Mode of Arrival: Ambulatory Information source: Patient Notes: Patient presents to the emergency department with reports of problems with her labia sutures that were placed post vaginal on February 12. She reports the sutures were supposed to dissolve. She noticed that her labia was split open and no sutures in place. She denies having sex, denies trauma, pain swelling erythema warmth or discharge. She reports she called the SPECIAL[facility] PHYSICIAN office and was told to come here for suture repair. Denies any other symptoms such as fever vomiting diarrhea. TRAVEL OUTSIDE OF THE [place] IN LAST 30 DAYS: No - HPI Onset: Yesterday Onset/Duration: Sudden Quality of pain: No pain Associated symptoms: None Exacerbated by: Denies Relieved by: Denies Similar symptoms previously: No Recently seen / treated by doctor: No - Related Data Allergies/Adverse Reactions: No Known Allergies Allergy (Verified 02/12/18 21:23) Past Medical History - General Information source: Patient - Social History Smoking Status: Current Every Day Smoker Chew tobacco use (# tins/day): No Frequency of alcohol use: None Drug Abuse: None Lives with: Family Family History: Reviewed & Not Pertinent, Other - FATHER AND BROTHER WITH KIDNEY STONES Patient has suicidal ideation: No Patient has homicidal ideation: No Neurological Medical History: Reports: Hx Migraine Renal/ Medical History: Reports: Hx Kidney Stones. Denies: Hx Peritoneal Dialysis GI Medical History: Reports: Hx Irritable Bowel Psychiatric Medical History: Reports: Hx Anxiety, Hx Bipolar Disorder - "mood swings", Hx Depression, Hx Post Traumatic Stress Disorder Past Surgical History: Reports: Hx Orthopedic Surgery - ACL reconstruction and lumbar fusion, Hx Tonsillectomy - Immunizations Immunizations up to date: Yes Hx Diphtheria, Pertussis, Tetanus Vaccination: Yes Review of Systems - Review of Systems Notes: -Review HPI for review of systems., All other systems negative Physical Exam - Vital signs Vitals: Temp Pulse Resp BP Pulse Ox 98.7 F 86 18 131/84 H 98 02/20/18 10:09 02/20/18 10:09 02/20/18 10:09 02/20/18 10:02/20/18 10:09 - Notes Notes: PHYSICAL EXAMINATION: GENERAL: Well-appearing and in no acute distress HEAD: Atraumatic, normocephalic. EYES:, extraocular movements intact, sclera anicteric, conjunctiva are normal. ENT: nares patent, Moist mucous membranes. NECK: Normal range of motion, supple LUNGS: Even unlabored. HEART: Regular rate EXTREMITIES: Normal range of motion, NEUROLOGICAL: Cranial nerves grossly intact. Normal sensory/motor exams. PSYCH: Normal mood, normal affect. SKIN: Warm, Dry, normal turgor, no rashes or lesions noted - Genitourinary External exam: Normal Vaginal bleeding: Mild Notes: Unable to visualize labial tear or previous sutures. Dr. martinez consulted. Course - Re-evaluation Re-evalutation: 02/20/18 12:[address] martinez. I informed her that I could not find an acute laceration of the labia. No active bleeding from the labia although the patient has bleeding. She will be down to see the patient. 02/20/18 12:42 Dr. martinez here area sutured. Reports patient can be discharged home and has an appointment March 17 And updated on plan of care. - Vital Signs Vital signs: Temp Pulse Resp BP Pulse Ox 98.7 F 86 18 131/84 H 98 02/20/18 10:09 02/20/18 10:09 02/20/18 10:56 02/20/18 10:09 02/20/18 10:09 - Consults *Cj martinez Time consulted: 12:23 Reason for consultation: 02/20/18 12:23 labia sutures out Consulted provider: will come to ER Discharge - Discharge Clinical Impression: Labia suture repair Condition: Stable Disposition: HOME, SELF-CARE Additional Instructions: *You have been treated for labia suture repair *Monitor the site for signs of infection such as increasing pain, redness, swelling, warmth *Follow up with your SPECIALIST PHYSICIAN Fe. as scheduled *Return to ED for signs of infection, worsening condition, changes, needs Referrals: HARSHIL YO MD [ACTIVE STAFF] - 03/17/18
--- NOTE | 2018-02-20 12:17 | EKG REPORT ---
SEVERITY:- NORMAL ECG - SINUS RHYTHM : Confirmed by: Ad Wilkinson MD 20-Feb-2018 12:16:59
[2018-02-20] MEDS ORDERED: LIDOCAINE 1% INJ-PF (10 MG/ML) 30 ML SDV ONE (12:20)
--- NOTE | 2018-02-20 12:58 | PDOC CONSULTATION ---
Consultation Consult Date: 02/20/18 Attending physician:: ADAM HERNDON Consult reason:: labial repair suture prematurely fell out History of Present Illness Admission Date/PCP: [facility] Patient complains of: "The suture on my labia tore through" History of Present Illness: HEATHER VEGA is a 37 year old female had a with Dr. Pablo, on February 13. She had a left labial laceration, which was repaired. She states that she looked at the area this morning and the 2 pieces were . He then presented to the emergency department to have it repaired. Patient denies excessive vaginal bleeding. Patient is having no bleeding from the labial laceration. Past Medical History Gynecological Infection: No Neurological Medical History: Reports: Migraine Psychiatric Medical History: Reports: Bipolar Disorder - "mood swings", Depression, Post Traumatic Stress Disorder Social History Information Source: Patient Lives with: Family Smoking Status: Current Every Day Smoker Cigarettes Packs Per Day: 1 Frequency of Alcohol Use: Rare Hx Recreational Drug Use: No Family History Family History: Reviewed & Not Pertinent, Other - FATHER AND BROTHER WITH KIDNEY STONES Parental Family History Reviewed: No - N/A Children Family History Reviewed: NA Sibling(s) Family History Reviewed.: NA Medication/Allergy Home Medications: Iron 18 mg PO DAILY 01/06/18 Vit,Calc76/Iron/Folic [Prenatabs Rx Tablet] 1 tab PO DAILY 01/06/18 Allergies/Adverse Reactions: No Known Allergies Allergy (Verified 02/12/18 21:23) Physical Exam - Physical Exam Vital Signs: Temp Pulse Resp BP Pulse Ox 98.7 F 86 18 131/84 H 98 02/20/18 10:09 02/20/18 10:09 02/20/18 10:56 02/20/18 10:09 02/20/18 10:09 Intake & Output 02/19/18 02/20/18 02/21/18 06:59 06:59 06:59 Weight 101.2 kg - Gynecological Exam Labia: normal, other - left labial minora laceration suture fell out prematurely--no bleeding, just Assessment & Plan - Diagnosis (1) Laceration of labia minora Qualifiers: Encounter type: subsequent encounter Qualified Code(s): S31.41XD - Laceration without foreign body of vagina and vulva, subsequent encounter Is this a current diagnosis for this admission?: Yes - Time Time Spent: 30 to 50 Minutes - repairing labial laceration Within: within 24 hours Disposition: stable--sit on a doughnut to keep pressure off the area - Plan Summary Plan Summary: Discharge home
--- NOTE | 2018-02-20 13:02 | Operative Report ---
Operative Report DATE OF SURGERY: 02/20/18 PREOPERATIVE DIAGNOSIS: Right Labia Minora separation after repair POSTOPERATIVE DIAGNOSIS: Same OPERATION: Right labial minora repair SURGEON: ADAM HERNDON ANESTHESIA: Local TISSUE REMOVED OR ALTERED: None COMPLICATIONS: None ESTIMATED BLOOD LOSS: Minimal INTRAOPERATIVE FINDINGS: Premature separation of sutured right labial minora PROCEDURE: The right labia minora was cleansed with Betadine. It was noted that there was no suture material seen. The area was hemostatic. Lidocaine was injected into the upper and lower portions of the labia. 3-0 chromic on an FS-2 needle was used to repair the area in a running, locked fashion. The area was hemostatic. Patient tolerated the procedure well.
== END 2018-02-20 12:59 | disposition home or self-care (01) ==
LOC: ER 10:04
DX: O90.89 Other complications of the puerperium, not elsewhere classified (principal); S31.41XD Laceration without foreign body of vagina and vulva, subsequent encounter; R10.2 Pelvic and perineal pain; X58.XXXD Exposure to other specified factors, subsequent encounter
CPT/HCPCS: 93005; 93010; 99284

== ENCOUNTER 2018-03-09 11:24 | Emergency (ER) | payer OTHER ==
[2018-03-09] MEDS ORDERED: HYDROCODONE/ACETAMINOPHEN 10-325 MG TABLET PO ONE (14:10)
--- NOTE | 2018-03-09 14:17 | ER Document Report ---
ED Medical Screen (RME) - General Chief Complaint: Vaginal Pain Stated Complaint: VAGINAL PAIN Time Seen by Provider: 03/09/18 14:10 Primary Care Provider: WADE BIRMINGHAM [Primary Care Provider] - Follow up as needed Notes: Patient is a 38-year-old female presents to the emergency department for swelling to her right labia. Patient states on 02/13/2018 she had a vaginal delivery. States at that time she did have a right labia tear. States she had stitches placed. Patient states she returned to the emergency room on 02/20/2018 because her stitches had come out and she felt as though it needed to be re- stitched. Patient states on 02/25/2018 those stitches then came out. Patient states she feels as though the area was healing well until this morning she woke up and saw that part of the right labia had turned purple and was very swollen. 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 Patient states she did not feel as though she could wait to March 17 which is why she presents to the emergency room Patient genitalia was not able to be examined due to patient being in PIT triage. Discussed with nursing staff about obtaining a room for patient to have a full evaluation. Patient does appear to be in generalized pain with her legs crossed. Lung sounds clear and equal in all garcia. I have greeted and performed a rapid initial assessment of this patient. A comprehensive ED assessment and evaluation of the patient, analysis of test results and completion of the medical decision making process will be conducted by additional ED providers. TRAVEL OUTSIDE OF THE [place] IN LAST 30 DAYS: No - Related Data Allergies/Adverse Reactions: No Known Allergies Allergy (Verified 03/09/18 11:27) Past Medical History - Social History Frequency of alcohol use: Rare Drug Abuse: None Neurological Medical History: Reports: Hx Migraine Renal/ Medical History: Reports: Hx Kidney Stones. Denies: Hx Peritoneal Dialysis GI Medical History: Reports: Hx Irritable Bowel Psychiatric Medical History: Reports: Hx Anxiety, Hx Bipolar Disorder - "mood swings", Hx Depression, Hx Post Traumatic Stress Disorder Past Surgical History: Reports: Hx Orthopedic Surgery - ACL reconstruction and lumbar fusion, Hx Tonsillectomy - Immunizations Immunizations up to date: Yes Hx Diphtheria, Pertussis, Tetanus Vaccination: Yes Physical Exam - Vital signs Vitals: Temp Pulse Resp BP Pulse Ox 98.6 F 72 18 125/79 96 03/09/18 11:43 03/09/18 11:43 03/09/18 11:43 03/09/18 11:43 03/09/18 11:43 Course - Vital Signs Vital signs: Temp Pulse Resp BP Pulse Ox 98.6 F 72 18 125/79 96 03/09/18 11:43 03/09/18 11:43 03/09/18 11:43 03/09/18 11:43 03/09/18 11:43 Doctor's Discharge - Discharge Referrals: [facility] [[facility]] - Follow up as needed
[2018-03-09] MEDS ORDERED: LIDOCAINE 4% TRANSPARENT DRESSING 5 GM KIT TP ONE (16:24)
[2018-03-09] MEDS ORDERED: LIDOCAINE 1% INJ (10 MG/ML) 10 ML MDV INJ ONE (17:44)
[2018-03-09] MEDS ORDERED: LIDOCAINE 1% INJ-PF (10 MG/ML) 30 ML SDV ONE (17:46)
--- NOTE | 2018-03-09 18:09 | ER Document Report ---
ED General - General Chief Complaint: Vaginal Pain Stated Complaint: VAGINAL PAIN Time Seen by Provider: 03/09/18 14:10 Primary Care Provider: VALENCIA,WADE [Primary Care Provider] - Follow up as needed Mode of Arrival: Ambulatory Information source: Patient TRAVEL OUTSIDE OF THE [place] IN LAST 30 DAYS: No - HPI Patient complains to provider of: Vaginal pain Onset: Other - 38-year-old female who presents for evaluation of pain in her right labia after her vaginal delivery caused a tear approximately 3 weeks prior. She is began having intensifying pain in the right labia there since and noted today it felt like it was throbbing and much more painful than previously. Denies any trauma to the area otherwise, denies any dysuria or inability to urinate or change in sexual partners denies any other symptoms. - Related Data Allergies/Adverse Reactions: No Known Allergies Allergy (Verified 03/09/18 11:27) Past Medical History - General Information source: Patient - Social History Smoking Status: Current Every Day Smoker Frequency of alcohol use: Rare Drug Abuse: None Family History: Reviewed & Not Pertinent, Other - FATHER AND BROTHER WITH KIDNEY STONES Patient has suicidal ideation: No Patient has homicidal ideation: No Neurological Medical History: Reports: Hx Migraine Renal/ Medical History: Reports: Hx Kidney Stones. Denies: Hx Peritoneal Dialysis GI Medical History: Reports: Hx Irritable Bowel Psychiatric Medical History: Reports: Hx Anxiety, Hx Bipolar Disorder - "mood swings", Hx Depression, Hx Post Traumatic Stress Disorder Past Surgical History: Reports: Hx Orthopedic Surgery - ACL reconstruction and lumbar fusion, Hx Tonsillectomy - Immunizations Immunizations up to date: Yes Hx Diphtheria, Pertussis, Tetanus Vaccination: Yes Review of Systems - Review of Systems -: Yes All other systems reviewed and negative Physical Exam - Vital signs Vitals: Temp Pulse Resp BP Pulse Ox 98.6 F 72 18 125/79 96 03/09/18 11:43 03/09/18 11:43 03/09/18 11:43 03/09/18 11:43 03/09/18 11:43 - General General appearance: Anxious In distress: Mild - HEENT Head: Normocephalic, Atraumatic Eyes: Normal Pupils: PERRL - Respiratory Respiratory status: No respiratory distress Chest status: Nontender - Cardiovascular Rhythm: Regular Heart sounds: Normal auscultation Murmur: No - Abdominal Inspection: Normal Distension: No distension Bowel sounds: Normal Tenderness: Nontender Organomegaly: No organomegaly - Genitourinary External exam: Other - Fitness Assistant present, the right labia minora demonstrates a pedunculated erythematous mass which is protuberant and approximately 3 x 4 mm in size - Back Back: Normal, Nontender - Extremities General upper extremity: Normal inspection, Nontender, Normal color, Normal ROM, Normal temperature General lower extremity: Normal inspection, Nontender, Normal color, Normal ROM, Normal temperature, Normal weight bearing. No: Kristopher's sign Course - Re-evaluation Re-evalutation: 38-year-old female with a small pedunculated mass on her right labia minora which appears to be a piece of tissue which has torsed as a result of a repaired labial tear following vaginal delivery. Applied topical lidocaine to this area for analgesia for a better investigation. Following topical application of lidocaine attempted to detorsed, patient would not tolerate so proceeded with administration of injected 1% lidocaine without epinephrine. Following administration examination demonstrated what was a small piece of torsed tissue that was apparently nonviable given the exam, made determination to clip base and remove the throbbing mass for patient comfort. Following removal patient noted that her pain was greatly improved. She was given return precautions and encouraged follow-up with her primary physician or livestock judging coach related to today's visit. - Vital Signs Vital signs: Temp Pulse Resp BP Pulse Ox 98.0 F 61 16 138/82 H 97 03/09/18 18:18 03/09/18 18:18 03/09/18 18:18 03/09/18 18:18 03/09/18 18:18 Procedures - Incision and Drainage Right Labia Incision Method: Incision made by scalpel - Entered in error, no incision and drainage performed - Laceration/Wound Repair Right Labia Wound length (cm): 0.5 Wound's Depth, Shape: Superficial Anesthetic type: 1% Lidocaine Volume Anesthetic (mLs): 3 Wound explored: Clean Wound Debrided: Extensive - Pedunculated erythematous thrombosed mass, debrided along the labia minora utilizing scissors and forceps Discharge - Discharge Clinical Impression: Vaginal pain, Labia irritation Condition: Good Disposition: HOME, SELF-CARE Additional Instructions: You were seen today in the emergency department for the swelling and irritation on your labia. You had evaluation including a physical exam as well as removal of this small piece of irritated tissue. You should use a pad. If you begin to bleed such that she have to change her pad once every hour for greater than 4 hours please return to the emergency room. Avoid sexual intercourse for the next 3 days. Referrals: [facility] [Primary [facility]] - Follow up as needed
[2018-03-09 18:19] VITALS: BP 138/82
== END 2018-03-09 18:19 | disposition home or self-care (01) ==
LOC: ER 11:24
DX: N90.89 Other specified noninflammatory disorders of vulva and perineum (principal); R10.2 Pelvic and perineal pain; F17.200 Nicotine dependence, unspecified, uncomplicated; Z87.442 Personal history of urinary calculi
CPT/HCPCS: 11420; 99283; J3490

== ENCOUNTER 2019-04-15 18:05 | Emergency (ER) | payer OTHER ==
[2019-04-15 18:14] VITALS: BP 121/78
--- NOTE | 2019-04-15 18:38 | ER Document Report ---
ED Oral Problem - General Chief Complaint: Toothache Stated Complaint: TOOTH PAIN Time Seen by Provider: 04/15/19 18:32 [facility] [[facility]] - Follow up as needed Mode of Arrival: Ambulatory Information source: Patient Notes: 39-year-old female presented to ED for the temporary crown falling off of a root canal tooth on the right upper jaw. She states this is the second time that temporary crown has fallen off and there is still not put the permanent crown on this tooth. She has with her part of the tooth and the packing that is fallen out of this tooth. [facility] and they have not completely fixed this tooth yet. I have discussed with her dental paste they can feel the tooth until she gets to the dentist. We have also discussed Tylenol and Motrin she states that she has those at home and the use of antibiotics which she states she has at home. TRAVEL OUTSIDE OF THE [place] IN LAST 30 DAYS: No - Related Data Allergies/Adverse Reactions: No Known Allergies Allergy (Verified 04/15/19 18:28) Past Medical History - General Information source: Patient - Social History Smoking Status: Current Every Day Smoker Cigarette use (# per day): Yes Smoking Education Provided: Yes - 4 min Frequency of alcohol use: None Drug Abuse: None Lives with: Family Family History: Reviewed & Not Pertinent, Other - FATHER AND BROTHER WITH KIDNEY STONES - Past Medical History Cardiac Medical History: Reports: None Pulmonary Medical History: Reports: None EENT Medical History: Reports: None Neurological Medical History: Reports: Hx Migraine Endocrine Medical History: Reports: None Renal/ Medical History: Reports: Hx Kidney Stones Malignancy Medical History: Reports: None GI Medical History: Reports: Hx Irritable Bowel Skin Medical History: Reports None Psychiatric Medical History: Reports: Hx Anxiety, Hx Bipolar Disorder - "mood swings", Hx Depression, Hx Post Traumatic Stress Disorder Traumatic Medical History: Reports: None Infectious Medical History: Reports: None Past Surgical History: Reports: Hx Orthopedic Surgery - ACL reconstruction and lumbar fusion, Hx Tonsillectomy - Immunizations Immunizations up to date: Yes Hx Diphtheria, Pertussis, Tetanus Vaccination: Yes Review of Systems - Review of Systems Constitutional: No symptoms reported EENT: Mouth pain, Dental problem Cardiovascular: No symptoms reported Respiratory: No symptoms reported Gastrointestinal: No symptoms reported Genitourinary: No symptoms reported Female Genitourinary: No symptoms reported Musculoskeletal: No symptoms reported Skin: No symptoms reported Hematologic/Lymphatic: No symptoms reported Neurological/Psychological: No symptoms reported -: Yes All other systems reviewed and negative Physical Exam - Vital signs Vitals: Temp Pulse Resp BP Pulse Ox 98.4 F 85 18 121/78 94 04/15/19 18:13 04/15/19 18:13 04/15/19 18:13 04/15/19 18:13 04/15/19 18:13 Interpretation: Normal - General General appearance: Appears well, Alert - HEENT Head: Normocephalic, Atraumatic Eyes: Normal Pupils: PERRL Ears: Normal External canal: Normal Tympanic membrane: Normal Sinus: Normal Nasal: Normal Mouth/Lips: Caries Teeth diagram: 1 - Root canal packing and part of the tooth missing no permanent crown pain to the area - Respiratory Respiratory status: No respiratory distress Chest status: Nontender Breath sounds: Normal Chest palpation: Normal - Cardiovascular Rhythm: Regular Heart sounds: Normal auscultation Murmur: No - Abdominal Inspection: Normal Distension: No distension Bowel sounds: Normal Tenderness: Nontender Organomegaly: No organomegaly - Back Back: Normal, Nontender - Extremities General upper extremity: Normal inspection, Nontender, Normal color, Normal ROM, Normal temperature General lower extremity: Normal inspection, Nontender, Normal color, Normal ROM, Normal temperature, Normal weight bearing. No: Kristopher's sign - Neurological Neuro grossly intact: Yes Cognition: Normal Orientation: AAOx4 Dasia Coma Scale Eye Opening: Spontaneous [place] Coma Scale Verbal: Oriented Dasia Coma Scale Motor: Obeys Commands Dasia Coma Scale Total: 15 Speech: Normal Motor strength normal: LUE, RUE, LLE, RLE Sensory: Normal - Psychological Associated symptoms: Normal affect, Normal mood - Skin Skin Temperature: Warm Skin Moisture: Dry Skin Color: Normal Course - Vital Signs Vital signs: Temp Pulse Resp BP Pulse Ox 98.4 F 85 18 121/78 94 04/15/19 18:13 04/15/19 18:13 04/15/19 18:13 04/15/19 18:13 04/15/19 18:13 Discharge - Discharge Clinical Impression: Pain due to dental caries Condition: Stable Disposition: HOME, SELF-CARE Additional Instructions: You were seen today for dental pain after the packing fell out of a root canal tooth. You stated you did not need Tylenol or Motrin or antibiotics as you have these at home. Recommended the dental paste that can feel the tooth until she can get to the dentist. FOLLOW-UP CARE: You have been referred for follow-up care to the dentists listed below. Call the dentists office for an appointment as you were instructed or within the next two days. If you experience worsening or a significant change in your symptoms, notify the physician immediately or return to the Emergency Department at any time for re-evaluation. [facility] [address] [place] [address] [facility] [address] [facility] [address] [facility] [place] [facility] [address] [email or web address] [address] [place] [address] Friday- 8:00am to 5:00 pm Will see patients from other [facility] hospital. Charges based on income and family size and accepts Medicare, Medicaid, and Insurances Will pull molars [facility] [id number] Hours of Operation 8:00 am - 4:30 pm weekdays The following dental offices accept Medicaid: [facility] Dr. Daly Dr. Moses Dr. Duncan Dr. Villalobos Jasvir Phillips L[place], and [facility] oral surgery Dr. Lombardo ([place]) Dr. Saravia ([place]) [facility] Drs. Jones and Michael ([place]) Dr. Soni ([place]) [facility] Dr. Tobar ([place]) Drs. Chicas and ([place]) Medicaid Care Line Forms: Smoking Cessation Education Referrals: [facility] [Primary [facility]] - Follow up as needed
== END 2019-04-15 18:44 | disposition home or self-care (01) ==
LOC: ER 18:05
DX: K02.9 Dental caries, unspecified (principal); K08.89 Other specified disorders of teeth and supporting structures; F17.210 Nicotine dependence, cigarettes, uncomplicated; Z71.6 Tobacco abuse counseling
CPT/HCPCS: 99282; 99406